=== PATIENT | female | born 1970 | race Caucasian/White ===

== ENCOUNTER 2018-03-26 18:59 | Emergency (ER) | payer OTHER ==
[~2018-03-26] VITALS: Ht 167.6 cm; Wt 74.1 kg
[2018-03-26 18:59] VITALS: BP 128/67
[2018-03-26] MEDS ORDERED: PERCOCET 5MG/325MG TAB PO ONE (19:15)
[2018-03-26] MEDS ORDERED: NAPR-50 PO (19:59)
[2018-03-26] MEDS ORDERED: NORCO 5/325MG TABLET (BULK FOR ED) PO ONE (20:00)
--- NOTE | 2018-03-26 20:03 | REP ---
AP PELVIS WITH LEFT HIP: 03/26/2018: Clinical history: Trauma. Findings: No prior study. AP pelvis. Pelvic ring intact. SI joints, sacral ala and foramina unremarkable. Lower lumbar vertebral levels, iliac bones acetabuli an ischium without fracture. Minor degenerative changes at the acetabular roof for each hip. Pubic rami and symphysis pubis unremarkable. Femoral heads, necks and trochanters intact. No AVN or fracture visible. Left hip AP and frog-leg view of the hip show a spur at the acetabular roof on the left. There is no evidence of narrowing of the hip joint space and no fracture, AVN or focal lesion of the left hip. Impression: 1. Minor spurring at the acetabular roof on the left but no visible or displaced fracture, avulsion, AVN or other focal lesion about the left hip and pelvis. Electronically Signed by Jamar Villa MD 03/26/2018 08:21 P
--- NOTE | 2018-03-26 20:04 | REP ---
RIGHT KNEE, COMPLETE: 03/26/2018. Clinical history: Trauma, patient fell. Findings: Five views are provided. No prior study. Luck view shows no patellar subluxation, dislocation or fracture. Medial and lateral compartments show no narrowing. There is tiny spurring of the lateral tibial spine patellofemoral joint without significant spurs. No definite joint effusion, loose body or osteochondral defect. Proximal tibiofibular articulation intact. Impression: 1. Minimal degenerative change but without evidence of any fracture, avulsion, loose body, osteochondral defect or joint effusion. Electronically Signed by Jamar Villa MD 03/26/2018 08:21 P
== END 2018-03-26 20:04 | disposition home or self-care (01) ==
LOC: M ED 18:59
DX: S83.92XA Sprain of unspecified site of left knee, initial encounter (principal); S70.02XA Contusion of left hip, initial encounter; W19.XXXA Unspecified fall, initial encounter; Y92.410 Unspecified street and highway as the place of occurrence of the external cause